=== PATIENT | male | born 1990 | race Two or more races ===

== ENCOUNTER 2022-11-20 14:08 | Emergency (ER) | payer SELFPAY ==
[~2022-11-20] VITALS: Ht 177.8 cm; Wt 77.2 kg
[2022-11-20 14:17] VITALS: BP 0/0
== END 2022-11-20 17:02 ==
LOC: ER 14:08 → EDBD 14:08 → ER 16:50
DX: I46.9 Cardiac arrest, cause unspecified (principal); T40.411A Poisoning by fentanyl or fentanyl analogs, accidental (unintentional), initial encounter; Y92.89 Other specified places as the place of occurrence of the external cause
CPT/HCPCS: 92950